=== PATIENT | male | born 1990 | race African-American/Black ===

== ENCOUNTER 2017-12-12 23:56 | Emergency (ER) | payer SELFPAY ==
[~2017-12-12] VITALS: Ht 180.3 cm; Wt 108.9 kg
[~2017-12-12 23:56] MED LIST: ALBU2.5V5 IH; DM/P295L2 PO; GUAI118L3 PO; PRED5TAB19 PO
[2017-12-13] MEDS ORDERED: IPRATRPIUM/ALBUTEROL 0.5/2.5MG 3 ML NEBU. NEB ONE (00:15)
[2017-12-13] MEDS ORDERED: ALBUTEROL SULFATE 2.5 MG/3 ML NEBU. CONT NEB ONE (00:15)
[2017-12-13] MEDS ORDERED: methylPREDNISolone SOD SUCC PF 125 MG/2 ML VIAL. IV ONE (00:15)
[2017-12-13] MEDS ORDERED: IV NORMAL SALINE 1,000ML 1,000 ML IV SCH (00:15)
[2017-12-13] MEDS ORDERED: LIDO:MAALOX 1:1 20 ML SINGLE DOSE. PO ONE (00:30)
[2017-12-13 00:33] LABS: BASO % 1 % (0-3); EOS # 0.2 x10^3/uL (0.0-0.7); EOS % 4 % (0-3); HEMATOCRIT 45.3 % (39.0-53.0); HEMOGLOBIN 15.9 g/dL (13.0-17.5); LYMPH # 2.4 x10^3/uL (1.0-4.8); LYMPH % 48 % (24-48); MEAN CORPUSCULAR HEMOGLOBIN 31 pg (25-35); MEAN CORPUSCULAR HGB CONC 35 g/dL (31-37); MEAN CORPUSCULAR VOLUME 87 fL (79-100); MONO # 0.4 x10^3/uL (0.0-1.1); MONO % 8 % (0-9); NEUT # 1.9 x10^3uL (1.8-7.7); NEUT % 39 % (31-73); PLATELET COUNT 246 x10^3/uL (140-400); RED BLOOD COUNT 5.19 x10^6/uL (4.30-5.70); RED CELL DISTRIBUTION WIDTH 13.2 % (11.5-14.5); WHITE BLOOD COUNT 4.9 x10^3/uL (4.0-11.0)
[2017-12-13] MEDS ORDERED: MAGNESIUM SULFATE 2GM 50 ML IV ONE (00:45)
[2017-12-13 00:46] LABS: ALBUMIN 4.1 g/dL (3.4-5.0); ALBUMIN/GLOBULIN RATIO 1.2 (1.0-1.7); CALCIUM 8.4 mg/dL (8.5-10.1); POTASSIUM 3.9 mmol/L (3.5-5.1); TOTAL BILIRUBIN 0.4 mg/dL (0.2-1.0); TOTAL PROTEIN 7.4 g/dL (6.4-8.2)
--- NOTE | 2017-12-13 00:54 | EKG ---
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
--- NOTE | 2017-12-13 01:03 | PHYS DOC ---
Past History Past Medical History: Asthma, Other Past Surgical History: No Surgical History, Other Smoking: Less than 1pk/day Alcohol Use: None Drug Use: None Adult General Chief Complaint Chief Complaint: SHORTNESS OF BREATH HPI HPI Patient is a 27 year old male who presents with complaint of shortness of breath. Patient states that he has been having asthma symptoms over the past 2 days with certain having significant shortness of breath which awoke him from sleep earlier tonight prior to coming to the emergency department. Patient states he does have history of asthma. The patient denies any associated fever or productive cough. The patient also denies any chest pain currently. Patient states that she feels very short of breath at this time and is noticeably in respiratory distress. Denies any nausea or vomiting. Patient states that he tried albuterol at home with no relief of symptoms. Due to severity of symptoms he came to the emergency department for evaluation. Review of Systems Review of Systems Constitutional: Denies fever or chills [] Eyes: Denies change in visual acuity, redness, or eye pain [] HENT: Denies nasal congestion or sore throat [] Respiratory: Shortness of breath, wheezing[] Cardiovascular: Denies chest pain or edema[] GI: Denies abdominal pain, nausea, vomiting, bloody stools or diarrhea [] : Denies dysuria or hematuria [] Musculoskeletal: Denies back pain or joint pain [] Integument: Denies rash or skin lesions [] Neurologic: Denies headache, focal weakness or sensory changes [] All other systems were reviewed and found to be within normal limits, except as documented in this note. Current Medications Current Medications Current Medications Medications (Trade) Dose Ordered Sig/Maulik Start Time Stop Time Status Last Admin Dose Admin Albuterol Sulfate (Ventolin) 7.5 mg 1X ONCE 12/13/17 00:15 12/13/17 00:17 DC 12/13/17 00:30 7.5 MG Albuterol/ Ipratropium (Duoneb) 3 ml 1X ONCE 12/13/17 00:15 12/13/17 00:17 DC 12/13/17 00:29 3 ML Magnesium Sulfate 50 ml @ 25 mls/hr 1X ONCE 12/13/17 00:45 12/13/17 02:44 Methylprednisolone Sodium Succinate (SOLU-Medrol 125MG VIAL) 125 mg 1X ONCE 12/13/17 00:15 12/13/17 00:17 DC 12/13/17 00:21 125 MG Multi-Ingredient Mouthwash/Gargle (Gi Cocktail) 20 ml 1X ONCE 12/13/17 00:30 12/13/17 00:30 DC Sodium Chloride 1,000 ml @ 1,000 mls/hr Q1H 12/13/17 00:15 12/13/17 01:14 Allergies Allergies Allergies Coded Allergies Type Severity Reaction Last Updated Verified shellfish derived Allergy Severe Rash 09/12/13 Yes Physical Exam Physical Exam Constitutional: Alert, afebrile, appears in moderate to severe respiratory distress. [] HENT: Normocephalic, atraumatic, bilateral external ears normal, oropharynx moist, no oral exudates, nose normal. [] Eyes: PERRLA, EOMI, conjunctiva normal, no discharge. [] Neck: Normal range of motion, no tenderness, supple, no stridor. [] Cardiovascular: Tachycardiac, regular rhythm, no murmur [] Lungs & Thorax: Moderate to severe restriction of air movement bilaterally, accessory muscle usage present, extremely wheezes bilaterally, no rales[] Abdomen: Bowel sounds normal, soft, no tenderness, no masses, no pulsatile masses. [] Skin: Warm, dry, no erythema, no rash. [] Back: No tenderness, no CVA tenderness. [] Extremities: No tenderness, no cyanosis, no clubbing, ROM intact, no edema. [] Neurologic: Alert and oriented X 3, normal motor function, normal sensory function, no focal deficits noted. [] Current Patient Data Vital Signs Vital Signs Date Time Temp Pulse Resp B/P (MAP) Pulse Ox O2 Delivery O2 Flow Rate FiO2 12/13/17 00:32 98 12/12/17 23:56 98.1 100 32 Room Air Lab Results Laboratory Tests Test 12/13/17 00:15 12/13/17 01:47 White Blood Count 4.9 x10^3/uL Red Blood Count 5.19 x10^6/uL Hemoglobin 15.9 g/dL Hematocrit 45.3 % Mean Corpuscular Volume 87 fL Mean Corpuscular Hemoglobin 31 pg Mean Corpuscular Hemoglobin Concent 35 g/dL Red Cell Distribution Width 13.2 % Platelet Count 246 x10^3/uL Neutrophils (%) (Auto) 39 % Lymphocytes (%) (Auto) 48 % Monocytes (%) (Auto) 8 % Eosinophils (%) (Auto) 4 % Basophils (%) (Auto) 1 % Neutrophils # (Auto) 1.9 x10^3uL Lymphocytes # (Auto) 2.4 x10^3/uL Monocytes # (Auto) 0.4 x10^3/uL Eosinophils # (Auto) 0.2 x10^3/uL Basophils # (Auto) 0.0 x10^3/uL Sodium Level 139 mmol/L Potassium Level 3.9 mmol/L Chloride Level 102 mmol/L Carbon Dioxide Level 32 mmol/L Anion Gap 5 Blood Urea Nitrogen 18 mg/dL Creatinine 2.0 mg/dL Estimated GFR (Cockcroft-Gault) 48.0 BUN/Creatinine Ratio 9 Glucose Level 96 mg/dL Calcium Level 8.4 mg/dL Total Bilirubin 0.4 mg/dL Aspartate Amino Transf (AST/SGOT) 17 U/L Alanine Aminotransferase (ALT/SGPT) 35 U/L Alkaline Phosphatase 72 U/L Total Protein 7.4 g/dL Albumin 4.1 g/dL Albumin/Globulin Ratio 1.2 Urine Collection Type Unknown Urine Color Yellow Urine Clarity Clear Urine pH 6.5 Urine Specific [place] 1.020 Urine Protein Neg Urine Glucose (UA) Neg mg/dL Urine Ketones (Stick) Neg mg/dL Urine Blood Neg Urine Nitrite Neg Urine Bilirubin Neg Urine Urobilinogen Dipstick 0.2 mg/dL Urine Leukocyte Esterase Neg Urine RBC 0 /HPF Urine WBC Occ /HPF Urine Squamous Epithelial Cells Occ /LPF Urine Bacteria 0 /HPF Current Medications Medications (Trade) Dose Ordered Sig/Maulik Route PRN Reason Start Time Stop Time Status Last Admin Dose Admin Sodium Chloride 1,000 ml @ 1,000 mls/hr Q1H IV 12/13/17 00:15 12/13/17 01:14 DC 12/13/17 01:16 Albuterol/ Ipratropium (Duoneb) 3 ml 1X ONCE NEB 12/13/17 00:15 12/13/17 00:17 DC 12/13/17 00:29 Methylprednisolone Sodium Succinate (SOLU-Medrol 125MG VIAL) 125 mg 1X ONCE IV 12/13/17 00:15 12/13/17 00:17 DC 12/13/17 00:21 Albuterol Sulfate (Ventolin) 7.5 mg 1X ONCE CONT NEB 12/13/17 00:15 12/13/17 00:17 DC 12/13/17 00:30 Multi-Ingredient Mouthwash/Gargle (Gi Cocktail) 20 ml 1X ONCE PO 12/13/17 00:30 12/13/17 00:30 DC Magnesium Sulfate 50 ml @ 25 mls/hr 1X ONCE IV 12/13/17 00:45 12/13/17 02:44 12/13/17 01:16 Acetaminophen (Tylenol) 650 mg 1X ONCE PO 12/13/17 02:00 12/13/17 02:01 DC 12/13/17 02:02 Cyclobenzaprine HCl (Flexeril) 10 mg 1X ONCE PO 12/13/17 02:00 12/13/17 02:01 DC 12/13/17 02:02 Albuterol Sulfate (Ventolin) 2.5 mg 1X ONCE NEB 12/13/17 02:00 12/13/17 02:01 DC 12/13/17 01:57 EKG EKG Interpreted by me: Heart rate 105, sinus tachycardia, normal intervals, normal axis, no acute ST/T-wave abnormalities present Radiology/Procedures Radiology/Procedures One view AP chest x-ray interpreted by me: No infiltrate, no effusions, normal cardiac silhouette.[] Course & Med Decision Making Course & Med Decision Making Pertinent Labs and Imaging studies reviewed. (See chart for details) The patient was treated with IV Solu-Medrol and an hour-long continuous nebulizer treatment upon initial presentation. Reexamination shows significantly improved work of breathing with no accessory muscle usage. Patient did have continued wheezing and was given one additional breathing treatment of albuterol with improvement. Patient states he feels much better and would like to continue with outpatient treatment. The patient was prescribed prednisone taper, albuterol. The patient did state that with his increased work of breathing he was having muscle tightness and pain throughout his chest wall which he states he gets when he has a bad asthma attack. The patient was treated with Tylenol and Flexeril. The patient will be prescribed Flexeril for continued outpatient treatment and advised to use Tylenol as needed for pain. Recommend a follow-up in the next 2-3 days of primary doctor for reevaluation and to return to emergency department for any worsening symptoms. Patient voiced understanding and in agreement with treatment plan. Dragon Disclaimer Dragon Disclaimer This electronic medical record was generated, in whole or in part, using a voice recognition dictation system. Departure Departure: Impression: Primary Impression: Asthma exacerbation Disposition: 01 HOME, SELF-CARE Condition: IMPROVED Referrals: PCP,UNKNOWN (PCP) Patient Instructions: Asthma, Adult Additional Instructions: Follow-up with your primary doctor in the next 2-3 days for reevaluation. Return to the emergency department for any worsening symptoms. Scripts Albuterol Sulfate (VENTOLIN HFA INHALER) 18 Gm Hfa.aer.ad 2-4 PUFF IH Q4HRS PRN for WHEEZING, #1 INHALER 0 Refills Prov: BOWEN REEVES MD 12/13/17 Cyclobenzaprine Hcl (CYCLOBENZAPRINE HCL) 10 Mg Tablet 1 TAB PO TID PRN for MUSCLE SPASMS, #30 TAB Prov: BOWEN REEVES MD 12/13/17 Prednisone (PREDNISONE) 10 Mg Tablet 10 MG PO UD for PREDNISONE TAPER, #39 TAB 0 Refills Take 3 tablets by mouth twice a day for 3 days, then take 2 tablets by mouth twice a day for 3 days, then take 1 tablet by mouth twice a day for 3 days, then take 1 tablet by mouth daily x 3 days, then stop. Prov: BOWEN REEVES MD 12/13/17 Problem Qualifiers Primary Impression: Asthma exacerbation Asthma severity: moderate Asthma persistence: persistent Qualified Codes: J45.41 - Moderate persistent asthma with (acute) exacerbation BOWEN REEVES MD Dec 13, 2017 01:03
[2017-12-13] MEDS ORDERED: ALBU18HF IH (01:52)
[2017-12-13] MEDS ORDERED: CYCL-331 PO (01:52)
[2017-12-13] MEDS ORDERED: PRED-220 PO (01:52)
[2017-12-13] MEDS ORDERED: ALBUTEROL SULFATE 2.5 MG/3 ML NEBU. NEB ONE (02:00)
[2017-12-13] MEDS ORDERED: CYCLOBENZAPRINE 10 MG TABLET. PO ONE (02:00)
[2017-12-13] MEDS ORDERED: ACETAMINOPHEN 325 MG TABLET PO ONE (02:00)
[2017-12-13 02:06] LABS: BACTERIA,URINE 0 /HPF (0-FEW); BILIRUBIN,URINE NEG (NEG); CLARITY,URINE CLEAR; COLOR,URINE YELLOW; GLUCOSE,URINE NEG (NEG); NITRITE,URINE NEG (NEG); RBC,URINE 0 /HPF (0-2); SQUAMOUS EPITHELIAL CELL,UR OCC /LPF; UROBILINOGEN,URINE 0.2 mg/dL (0.2 mg/dL); WBC,URINE OCC /HPF (0-4)
[2017-12-13 03:05] VITALS: BP 158/102
--- NOTE | 2017-12-13 07:46 | RAD ---
Portable chest, 12/13/2017: HISTORY: Shortness of breath, asthma The heart size and pulmonary vascularity are normal. The lungs are clear. There is no evidence of pleural fluid. IMPRESSION: No acute cardiopulmonary abnormality is detected. Electronically signed by: Mendoza Garcia MD (12/13/2017 7:43 AM) [facility]
== END 2017-12-13 03:05 | disposition home or self-care (01) ==
LOC: ER 23:56
DX: J45.41 Moderate persistent asthma with (acute) exacerbation (principal); F17.200 Nicotine dependence, unspecified, uncomplicated; Z91.013 Allergy to seafood
CPT/HCPCS: 36415; 71045; 80053; 81001; 85025; 93005; 94640; 94644; 96365; 96366; 96375; 99285; J2930; J3475; J7613; J7620; J7030

== ENCOUNTER 2018-08-28 06:54 | Emergency (ER) | payer SELFPAY ==
[~2018-08-28] VITALS: Ht 180.3 cm; Wt 99.8 kg
[~2018-08-28 06:54] MED LIST changes: +ALBU2.5V8 IH; +CYCL-331 PO; +PRED-220 PO
[2018-08-28 07:08] VITALS: BP 163/86
[2018-08-28] MEDS ORDERED: CYCLOBENZAPRINE 10 MG TABLET. PO ONE (07:45)
[2018-08-28] MEDS ORDERED: HYDROcodone/APAP 5/325MG 1 TAB TABLET PO ONE (07:45)
[2018-08-28] MEDS ORDERED: HYDR-3165 PO (07:57)
[2018-08-28] MEDS ORDERED: CYCL-331 PO (07:57)
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
== END 2018-08-28 08:00 | disposition home or self-care (01) ==
LOC: ER 06:54
DX: S16.1XXA Strain of muscle, fascia and tendon at neck level, initial encounter (principal); S39.012A Strain of muscle, fascia and tendon of lower back, initial encounter; J45.909 Unspecified asthma, uncomplicated; F17.200 Nicotine dependence, unspecified, uncomplicated; Z71.6 Tobacco abuse counseling; Z88.8 Allergy status to other drugs, medicaments and biological substances; Z88.6 Allergy status to analgesic agent; Z91.013 Allergy to seafood; V49.49XA Driver injured in collision with other motor vehicles in traffic accident, initial encounter; Y93.I9 Activity, other involving external motion; Y92.488 Other paved roadways as the place of occurrence of the external cause; Y99.8 Other external cause status
CPT/HCPCS: 72040; 72100; 99283